=== PATIENT | female | born 1975 | race Two or more races ===

== ENCOUNTER 2017-02-27 10:31 | Day surgery (SDC) | payer MEDICAID ==
[~2017-02-27 10:31] MED LIST: FENTANYL 250 MCG/5 ML AMP IV PRN; LACTATED RINGERS 1,000 ML IV SCH; LIDOCAINE Viscous 2% 15 ML UDCUP PO PRN; MIDAZOLAM HCL 5 MG/5 ML VIAL IV PRN
[2017-02-27] MEDS ORDERED: LACTATED RINGERS 1,000 ML ONE (10:42)
[2017-02-27] MEDS ORDERED: IV START KIT ONE (10:42)
[2017-02-27] MEDS ORDERED: FENTANYL 100 MCG/2 ML VIAL ONE (11:55)
[2017-02-27] MEDS ORDERED: MIDAZOLAM HCL 5 MG/5 ML VIAL ONE (11:55)
[2017-02-27] MEDS ORDERED: LIDOCAINE Viscous 2% 15 ML UDCUP ONE (11:56)
[2017-02-27 16:57] LABS: HELICOBACTER PYLORII DETECTION POSITIVE (NEGATIVE)
--- NOTE | 2017-03-01 17:43 | SURGPATH ---
[facility] [address] [place] [id number] Patient Name: ELIDA PARR MR#: [id number] : 1975 Gender: F Specimen #: [id number] Collected: 02/27/2017 Received: 02/28/2017 Reported: 03/01/2017 Submitting Phys: ERIC CASON Copy To Phys: [facility] - HIM Clinical History / Pre-Operative Diagnosis: Abdominal pain, rule out Giardia, celiac sprue, or gastritis Specimen Source / Surgical Procedure Performed: #1 duodenal biopsy, #2 antral biopsy Interpretation: 1. DUODENUM, BIOPSY: - SMALL BOWEL MUCOSA SHOWING NO DIAGNOSTIC ABNORMALITIES. - NO EVIDENCE OF CELIAC DISEASE. - NO EVIDENCE OF SIGNIFICANT INFLAMMATION, VILLOUS BLUNTING, OR MALIGNANCY. 2. GASTRIC ANTRUM, BIOPSY: - MILD CHRONIC GASTRITIS. - MICROORGANISMS MORPHOLOGICALLY CONSISTENT WITH HELICOBACTER PYLORI IDENTIFIED WITH ROUTINE STAINING. - NO EVIDENCE OF INTESTINAL METAPLASIA OR MALIGNANCY. Electronically Signed Out Jun Gilmore M.D., Ph.D. Gross Description: 1. The specimen is received in formalin labeled with the patient's name and "duodenum". The specimen consists of two fragments of martinez soft tissue each is 0.2-0.4 cm in greatest dimension. Submitted in toto in one cassette 2. The specimen is received in formalin labeled with the patient's name and "antrum". The specimen consists of three fragments of martinez soft tissue each is 0.2-0.5 cm in greatest dimension. Submitted in toto in one cassette. NICKY Prince Microscopic Description: 1. Examination of multiple levels from the duodenum biopsy shows two fragments of histologically unremarkable small bowel mucosa. The villous architecture is intact without evidence of blunting. There is no evidence of increased intraepithelial lymphocytes. There is no evidence of significant inflammation or malignancy. 2. Examination of multiple levels from the gastric biopsy shows multiple fragments of gastric mucosa with expansion of the lamina propria by a mixed inflammatory cell infiltrate consisting of lymphocytes, plasma cells, and occasional eosinophils. No neutrophils are seen. Microorganisms morphologically consistent with Helicobacter pylori are identified with routine staining. There is no evidence of intestinal metaplasia or malignancy. 1: 83567 2: 90107 K29.50 B96.81
--- NOTE | 2017-03-02 11:25 | OP ---
Katey PARR [id number] : 1975 DATE OF ADDENDUM: March 02, 2017 ADDENDUM: PLAN: This 41-year-old female patient underwent upper endoscopy on, February 27, 2017 for complaints of heartburn and epigastric pain. Gastritis was noted. Antral biopsies confirmed the presence of H. pylori within the stomach. Biaxin and metronidazole have been prescribed to be used in conjunction with famotadine. The patient is encouraged to establish primary care. Job [id number] Cc: Sam Bai M.D.
== END 2017-02-27 13:35 | disposition home or self-care (01) ==
LOC: SDC 10:31
PROVIDERS: ATTEND Internal Medicine Gastroenterology
PROC: 0DB98ZX Excision of Duodenum, Via Natural or Artificial Opening Endoscopic, Diagnostic (ICD-10-PCS; principal; 2017-02-27)
PROC: 0DB68ZX Excision of Stomach, Via Natural or Artificial Opening Endoscopic, Diagnostic (ICD-10-PCS; 2017-02-27)
DX: K29.50 Unspecified chronic gastritis without bleeding (principal); B96.81 Helicobacter pylori [H. pylori] as the cause of diseases classified elsewhere; K29.80 Duodenitis without bleeding; Z87.891 Personal history of nicotine dependence
CPT/HCPCS: 43239; 87081; J3010; J2250; A9270; J7120